=== PATIENT | female | born 1985 | race Caucasian/White ===

== ENCOUNTER 2020-03-18 12:57 | Emergency (ER) | payer BC, MEDICAID ==
[~2020-03-18] VITALS: Ht 167.6 cm; Wt 70.0 kg
[2020-03-18] MEDS ORDERED: DIPHENHYDRAMINE 25MG CAPSULE PO ONE (15:15)
[2020-03-18] MEDS ORDERED: FAMOTIDINE 20MG TABLET PO ONE (15:15)
[2020-03-18] MEDS ORDERED: EPINEPHRINE 1:1000 1 MG/ML AMP IM ONE (15:15)
[2020-03-18] MEDS ORDERED: ALBUTEROL (0.083%) 2.5MG/3ML NEB HHN SCH (15:30)
[2020-03-18 16:07] LABS: BASOPHILS % 0.1 % (0.0-2.0); EOSINOPHILS % 0.1 % (0.0-5.0); HEMATOCRIT. 37.2 % (36.0-48.0); HEMOGLOBIN. 12.3 g/dL (12.0-16.0); LYMPHOCYTES % 22.9 % (20.0-50.0); MEAN CORPUSCULAR HEMOGLOBIN 31.6 pg (28.0-32.0); MEAN CORPUSCULAR VOLUME 95.2 fL (81.0-99.0); MEAN PLATELET VOLUME 10.9 fl (7.4-10.4); MONOCYTES % 5.3 % (2.0-8.0); NEUTROPHILS % 71.6 % (40.0-76.0); PLATELET 128 x1000/uL (130-400); RED BLOOD CELL COUNT 3.91 mill/uL (4.2-5.4); RED CELL DISTRIBUTION WIDTH 12.8 % (11.6-14.6)
[2020-03-18 16:13] LABS: CHLORIDE 111 mEq/L (98-107)
[2020-03-18] MEDS ORDERED: ACETAMINOPHEN 325MG TABLET PO ONE (16:15)
[2020-03-18] MEDS ORDERED: DEXAMETHASONE 10 MG/ML VIAL IV ONE (16:15)
[2020-03-18] MEDS ORDERED: METO-293 MT (19:43)
[2020-03-18] MEDS ORDERED: EPIN0.3P3 IM (19:43)
[2020-03-18 20:15] VITALS: BP 103/64
== END 2020-03-18 20:22 | disposition home or self-care (01) ==
LOC: ER 12:57
DX: R51.9 Headache, unspecified (principal); T78.40XA Allergy, unspecified, initial encounter; X58.XXXA Exposure to other specified factors, initial encounter; F41.9 Anxiety disorder, unspecified; J45.909 Unspecified asthma, uncomplicated; M79.7 Fibromyalgia; Z90.710 Acquired absence of both cervix and uterus
CPT/HCPCS: 36415; 71045; 80053; 81025; 85025; 93005; 96372; 96374; 99285; J1100; J3490; Q0163